=== PATIENT | female | born 1970 | race Caucasian/White ===

== ENCOUNTER 2017-10-06 07:10 | Emergency (ER) | payer OTHER ==
[~2017-10-06] VITALS: Ht 172.7 cm; Wt 88.2 kg
[2017-10-06 09:23] VITALS: BP 121/67
== END 2017-10-06 09:07 | disposition home or self-care (01) ==
LOC: FSED 07:10
DX: M54.5 Low back pain (principal); R10.32 Left lower quadrant pain; Z88.0 Allergy status to penicillin
CPT/HCPCS: 74177; 80053; 80307; 81025; 85025; 99284